=== PATIENT | male | born 1960 | race Caucasian/White ===

== ENCOUNTER 2022-02-25 09:55 | Emergency (ER) | payer OTHER, SELFPAY ==
[2022-02-25] VITALS (9 sets, daily range): BP systolic 122–154; BP diastolic 76–93; PULSE 69–94; RESP 18–21; TEMP 36.6; O2SAT 91–94; BMI 32.5
--- NOTE | 2022-02-25 10:28 | DI.RAD.S_ITS ---
PROCEDURE: XR CHEST 1V INDICATIONS: chest pain TECHNIQUE: One view of the chest was acquired. COMPARISON: None. FINDINGS: Surgical changes and devices: None. Lungs and pleura: Lungs are clear. No pleural effusions or pneumothorax. Mediastinum: Mediastinal contours appear normal. Heart size is normal. Bones and chest wall: No suspicious bony lesions. Overlying soft tissues appear unremarkable. IMPRESSION: No acute cardiopulmonary disease process. Dictated by: Nancy De Los Santos MD, PhD on 02/25/2022 at 10:54 Approved by: Nancy De Los Santos MD, PhD on 02/25/2022 at 10:54
[2022-02-25 10:43] LABS: Add Manual Diff / Slide Review NO; Basophils Absolute Auto 100 /uL (0-100); Basophils Percent Auto 0.7 % (0-2); Eosinophils Absolute Auto 100 /uL (0-450); Eosinophils Percent Auto 1.1 % (2-4); Hematocrit 45.6 % (41-53); Hemoglobin 15.7 g/dL (13.5-17.5); Lymphocytes Absolute Auto 1100 /uL (1100-4500); Lymphocytes Percent Auto 11.3 % (25-40); Mean Corpuscular HGB Conc 34.5 % (30-36); Mean Corpuscular Volume 89.9 fL (80-100); Monocytes Absolute Auto 1000 /uL (0-900); Monocytes Percent Auto 10.4 % (3-14); Neutrophils Absolute Auto 7600 /uL (1500-7000); Neutrophils Percent Auto 76.5 % (50-75); Platelet Count 311 X10^3/uL (150-400); Red Blood Cell Count 5.07 X10^6/uL (4.5-5.9); Red Cell Distribution Width 13.7 % (11.6-14.8)
[2022-02-25 10:52] LABS: Alanine Aminotransferase 24 IU/L (<50); Albumin 4.9 g/dL (3.5-5.0); Albumin Globulin Ratio 1.4 (1.0-2.8); Alkaline Phosphatase 92 U/L (38-126); Aspartate Aminotransferase 26 IU/L (17-59); BUN Creatinine Ratio 13.9 (6-22); Bilirubin Total 0.9 mg/dL (0.2-1.3); Blood Urea Nitrogen 10 mg/dL (9-20); Calcium 9.1 mg/dL (8.4-10.2); Carbon Dioxide 24 mmol/L (22-32); Chloride 104 mmol/L (98-107); Creatine Kinase 119 U/L (55-170); Estimated Glomerular Filt Rate > 60 mL/min (>60); Globulin 3.6 g/dL (1.7-4.1); Glucose 123 mg/dL (80-110); HEMOLYSIS < 15 (0-50); Lipase 81 U/L (23-300); Magnesium 1.9 mg/dL (1.6-2.3); Potassium 4.3 mmol/L (3.4-5.1); Sodium 137 mmol/L (137-145); Total Protein 8.5 g/dL (6.3-8.2)
[2022-02-25 10:56] LABS: D Dimer < 200 ng/mL (<230)
[2022-02-25 11:02] LABS: Troponin I < 0.012 ng/mL (0.01-0.034)
[2022-02-25 11:08] LABS: CKMB % Relative Index 0.2 % (1.5-5.0); Creatine Kinase MB 0.28 ng/mL (<2.37)
[2022-02-25 11:25] LABS: COVID19 -Nasal RAPID POSITIVE (Negative)
--- NOTE | 2022-02-25 11:56 | ED.URI ---
HPI - URI/Sore Throat General Chief Complaint: Upper Respiratory Symptoms Stated Complaint: COVID+ Chest discomfort Time Seen by Provider: 02/25/22 11:27 Source: patient Mode of arrival: Ambulatory History of Present Illness HPI Narrative: Patient is a 61-year-old male with history of hypertension, HARMONY presenting today with known COVID infections sore throat. States started having symptoms 4 days ago initial COVID test was negative however 3 days ago had a positive COVID test. Today she just feeling worse. Throat seems to really be hurting. He is coughing up some white phlegm. No real shortness of breath. He took both Tylenol and ibuprofen when he woke up around 7:00 p.m.. He denies any chest pain. No nausea or vomiting. No abdominal pain. Related Data Previous Rx's Medication Instructions Recorded nirmatrelvir 300 mg (150 mg x 2 tab PO QAM AND QPM 5 days #20 02/25/22 2)-ritonavir 100 mg tablet (EUA) tabs (Paxlovid 300 mg () Allergies Allergy/AdvReac Type Severity Reaction Status Date / Time No Known Drug Allergies Allergy Verified 02/25/22 10:08 Review of Systems Review of Systems Narrative: GENERAL: Denies chills, fatigue, malaise, fever, sweats, travel HEENT: See HPI RESPIRATORY: See HPI CARDIOVASCULAR: Denies chest pain, palpitations, orthopnea, edema GASTROINTESTINAL: Denies nausea, vomiting, abdominal pain, diarrhea, constipation, melena. : Denies dysuria, frequency, incontinence, hematuria, urinary retention, flank pain. MUSCULOSKELETAL: Denies weakness, joint pain, or bony pain SKIN: No rash, no erythema, no pruritus NEUROLOGIC: Denies weakness, dizziness, headache, numbness, change in speech, confusion PSYCHIATRIC: No concerning psychosocial issues. 12 point review of systems is negative except for those stated above and HPI Patient History Social History Smoking Status: Never smoker Smoking Status: Never smoker alcohol intake frequency: holidays/special occasions only Substance Use Type: does not use Exam Initial Vital Signs Initial Vital Signs: Vital Signs Temperature 97.8 F 02/25/22 10:08 Pulse Rate 94 H 02/25/22 10:08 Respiratory Rate 20 02/25/22 10:08 Blood Pressure 154/93 H 02/25/22 10:08 Pulse Oximetry 94 02/25/22 10:08 Oxygen Delivery Method 02/25/22 10:08 GENERAL: Alert 61-year-old male appears to not feel well but no acute distress HEENT: Head atraumatic,EOMI, pupils reactive, face symmetric, [moist] mucous membranes CARDIOVASCULAR: Regular rate and rhythm without murmurs, rubs or gallops. RESPIRATORY: Breath sounds equal bilaterally, no wheezes rales or rhonchi. ABDOMEN: Soft, nontender. Normoactive bowel sounds all 4 quadrants. No guarding or rebound. EXTREMITIES: Normal range of motion, no clubbing or edema. Neurovascularly intact NEUROLOGICAL: Alert and oriented x4. SKIN: Warm, dry, no laceration, no petechiae, no rashes or lesions. Course Orders Ordered: ED Orders 02/25/22 10:28 XR chest 1V Stat EKG-12 Lead Stat Discontinued Medications Sodium Chloride (Normal Saline 0.9%) 1,000 mls @ 1,000 mls/hr IV BOLUS ONE Stop: 02/25/22 13:04 Last Infusion: 02/25/22 13:17 Dose: 0 mls/hr Documented By: REPLACED BY [facility] Admin: 02/25/22 12:19 Dose: 1,000 mls/hr Documented By: MINA Ketorolac Tromethamine (Ketorolac 30 Mg/Ml Vial) 15 mg IV NOW ONE Stop: 02/25/22 12:06 Last Admin: 02/25/22 12:19 Dose: 15 mg Documented By: MINA Vital Signs Vital signs: Vital Signs - 8 hr 02/25/22 11:30 02/25/22 11:30 02/25/22 12:00 Pulse Rate 81 Respiratory Rate Blood Pressure 131/85 131/87 Pulse Oximetry 91 Oxygen Delivery Method Room Air 02/25/22 12:00 02/25/22 12:30 02/25/22 12:30 Pulse Rate 77 70 Respiratory Rate 18 Blood Pressure 122/77 Pulse Oximetry 92 93 Oxygen Delivery Method 02/25/22 13:00 02/25/22 13:00 Pulse Rate 69 Respiratory Rate Blood Pressure 128/76 Pulse Oximetry 94 Oxygen Delivery Method MDM - URI/Sore Throat Lab Data Result diagrams: 02/25/22 10:25 06/27/22 10:25 Labs: Lab Results 02/25/22 02/25/22 02/25/22 Range/Units 10:25 10:25 10:25 WBC 10.0 (4.5-11.0) X10^3/uL RBC 5.07 (4.5-5.9) X10^6/uL Hgb 15.7 (13.5-17.5) g/dL Hct 45.6 (41-53) % MCV 89.9 (80-100) fL MCH 31.0 (26-34) PG MCHC 34.5 (30-36) % RDW 13.7 (11.6-14.8) % Plt Count 311 (150-400) X10^3/uL Neut % (Auto) 76.5 H (50-75) % Lymph % (Auto) 11.3 L (25-40) % [place] % (Auto) 10.4 (3-14) % Eos % (Auto) 1.1 L (2-4) % Baso % (Auto) 0.7 (0-2) % Neut # (Auto) 7600 H (5597-8099) /uL Lymph # (Auto) 1100 (4131-8720) /uL [place] # (Auto) 1000 H (0-900) /uL Eos # (Auto) 100 (0-450) /uL Baso # (Auto) 100 (0-100) /uL D-Dimer < 200 (<230) ng/mL Sodium 137 (137-145) mmol/L Potassium 4.3 (3.4-5.1) mmol/L Chloride 104 (98-107) mmol/L Carbon Dioxide 24 (22-32) mmol/L BUN 10 (9-20) mg/dL Creatinine 0.72 (0.66-1.25) mg/dL Estimated GFR > 60 (>60) mL/min BUN/Creatinine Ratio 13.9 (6-22) Glucose 123 H (80-110) mg/dL Calcium 9.1 (8.4-10.2) mg/dL Magnesium 1.9 (1.6-2.3) mg/dL Total Bilirubin 0.9 (0.2-1.3) mg/dL AST 26 (17-59) IU/L ALT 24 (<50) IU/L Alkaline Phosphatase 92 (38-126) U/L Total Creatine Kinase 119 (55-170) U/L CK-MB (CK-2) 0.28 (<2.37) ng/mL CK-MB (CK-2) Rel Index 0.2 L (1.5-5.0) % Troponin I < 0.012 (0.01-0.034) ng/mL Total Protein 8.5 H (6.3-8.2) g/dL Albumin 4.9 (3.5-5.0) g/dL Globulin 3.6 (1.7-4.1) g/dL Albumin/Globulin Ratio 1.4 (1.0-2.8) Lipase 81 (23-300) U/L SARS-CoV-2 (PCR) (Negative) 02/25/22 Range/Units 10:25 WBC (4.5-11.0) X10^3/uL RBC (4.5-5.9) X10^6/uL Hgb (13.5-17.5) g/dL Hct (41-53) % MCV (80-100) fL MCH (26-34) PG MCHC (30-36) % RDW (11.6-14.8) % Plt Count (150-400) X10^3/uL Neut % (Auto) (50-75) % Lymph % (Auto) (25-40) % [place] % (Auto) (3-14) % Eos % (Auto) (2-4) % Baso % (Auto) (0-2) % Neut # (Auto) (1558-4603) /uL Lymph # (Auto) (1980-8307) /uL [place] # (Auto) (0-900) /uL Eos # (Auto) (0-450) /uL Baso # (Auto) (0-100) /uL D-Dimer (<230) ng/mL Sodium (137-145) mmol/L Potassium (3.4-5.1) mmol/L Chloride (98-107) mmol/L Carbon Dioxide (22-32) mmol/L BUN (9-20) mg/dL Creatinine (0.66-1.25) mg/dL Estimated GFR (>60) mL/min BUN/Creatinine Ratio (6-22) Glucose (80-110) mg/dL Calcium (8.4-10.2) mg/dL Magnesium (1.6-2.3) mg/dL Total Bilirubin (0.2-1.3) mg/dL AST (17-59) IU/L ALT (<50) IU/L Alkaline Phosphatase (38-126) U/L Total Creatine Kinase (55-170) U/L CK-MB (CK-2) (<2.37) ng/mL CK-MB (CK-2) Rel Index (1.5-5.0) % Troponin I (0.01-0.034) ng/mL Total Protein (6.3-8.2) g/dL Albumin (3.5-5.0) g/dL Globulin (1.7-4.1) g/dL Albumin/Globulin Ratio (1.0-2.8) Lipase (23-300) U/L SARS-CoV-2 (PCR) Positive H (Negative) Imaging Data Chest x-ray: Radiologist's Impression: XRay Report Signed Patient: Willam Garcia MR#: [id number] : 1960 Acct:[id number] Age/Sex: 61 / M Date of Service: 02/25/22 Loc: ED Accession Number: [id number] ?? Procedure: XR chest 1V Ordering Provider: Imelda Crews D.O. PROCEDURE:? XR CHEST 1V ? INDICATIONS:? chest pain ? TECHNIQUE:? One view of the chest was acquired.? ? COMPARISON:? None. ? FINDINGS:? ? Surgical changes and devices:? None.? ? Lungs and pleura:? Lungs are clear.? No pleural effusions or pneumothorax.? ? Mediastinum:? Mediastinal contours appear normal.? Heart size is normal.? ? Bones and chest wall:? No suspicious bony lesions.? Overlying soft tissues appear unremarkable.? ? IMPRESSION:? No acute cardiopulmonary disease process. ? ? Dictated by: Nancy De Los Santos MD, PhD on 02/25/2022 at 10:54? MDM Narrative Medical decision making narrative: Patient oxygen does decrease into the high 80s when he falls asleep. Probably combination of HARMONY and COVID. Oxygen is borderline 90-92%. Does quickly come up when he starts talking in taking deep breaths. At this time I do recommend paxlovid he within the 5 day window. Recommend he continue to monitor his oxygen at home. Feeling better after IV fluids and Toradol. Discharge Plan Departure Patient Disposition: Home Clinical Impression: COVID-19 Instructions: DI for COVID-19 (Suspected or Confirmed ) Activity Restrictions/Additional Instructions: *You have been diagnosed with COVID-19 *What to do: At this time please increase fluid intake monitor oxygen levels 1 to 2 times a day. Be sure the oxygen is above 91% *Continue to take medications as directed Paxlovid nayana as directed (this is a emergency use authorization (recommend calling pharmacies to make sure they have it before feeling it, start as soon as possible) *Follow up with your primary care provider in 2-3 days or call [phone] *Return to ER if you should have oxygen less than 90%, inability to tolerate fluids worsening pain or any new, worsening or concerning symptoms Prescriptions: New Paxlovid (EUA) 150 mg x 2- 100 mg tablet 2 tab PO QAM AND QPM 5 Days Qty: 20 0RF Visit Report Forms: Patient Portal/API
[2022-02-25] MEDS: SODIUM CHLORIDE 0.9% 1,000 ML 1000 ML IV (12:19)
[2022-02-25] MEDS: KETOROLAC 30 MG/ML VIAL 15 MG IV (12:19)
== END 2022-02-25 13:37 | disposition home or self-care (01) ==
PROVIDERS: Emergency Provider Emergency Medicine
DX: U07.1 COVID-19 (principal); R07.9 Chest pain, unspecified
CPT/HCPCS: 36415; 71045; 80053; 82550; 82553; 83690; 83735; 84484; 85025; 85379; 87635; 93005; 96361; 96374; 99284; C9803; J1885

== ENCOUNTER → 2023-01-28 16:23 | Outpatient (CLI) | payer OTHER, SELFPAY ==
[2023-01-28 17:39] LABS: Add Manual Diff / Slide Review NO; Basophils Absolute Auto 100 /uL (0-100); Basophils Percent Auto 1.1 % (0-2); Eosinophils Absolute Auto 400 /uL (0-450); Eosinophils Percent Auto 5.3 % (2-4); Hematocrit 44.4 % (41-53); Hemoglobin 14.9 g/dL (13.5-17.5); Lymphocytes Absolute Auto 2000 /uL (1100-4500); Lymphocytes Percent Auto 25.1 % (25-40); Mean Corpuscular HGB Conc 33.6 % (30-36); Mean Corpuscular Hemoglobin 30.8 PG (26-34); Mean Corpuscular Volume 91.6 fL (80-100); Monocytes Absolute Auto 600 /uL (0-900); Monocytes Percent Auto 7.6 % (3-14); Neutrophils Absolute Auto 5000 /uL (1500-7000); Neutrophils Percent Auto 60.9 % (50-75); Platelet Count 349 X10^3/uL (150-400); Red Blood Cell Count 4.85 X10^6/uL (4.5-5.9); Red Cell Distribution Width 14.3 % (11.6-14.8); White Blood Cell Count 8.1 X10^3/uL (4.5-11.0)
[2023-01-28 18:06] LABS: Alanine Aminotransferase 51 IU/L (<50); Albumin 4.8 g/dL (3.5-5.0); Albumin Globulin Ratio 1.4 (1.0-2.8); Alkaline Phosphatase 78 U/L (38-126); Aspartate Aminotransferase 41 IU/L (17-59); BUN Creatinine Ratio 18.4 (6-22); Bilirubin Total 0.6 mg/dL (0.2-1.3); Blood Urea Nitrogen 16 mg/dL (9-20); Calcium 9.3 mg/dL (8.4-10.2); Carbon Dioxide 26 mmol/L (22-32); Chloride 104 mmol/L (98-107); Estimated Glomerular Filt Rate > 60 mL/min (>60); Globulin 3.5 g/dL (1.7-4.1); Glucose 120 mg/dL (80-110); Lipase 86 U/L (23-300); Sodium 141 mmol/L (137-145); Total Protein 8.3 g/dL (6.3-8.2)
[2023-01-28 18:07] LABS: HEMOLYSIS 16 (0-50); Potassium 4.2 mmol/L (3.4-5.1)
[2023-01-28 18:59] LABS: Appearance Urine UA CLEAR; Bilirubin Urine UA NEGATIVE (NEGATIVE); Color Urine UA YELLOW; Glucose Urine UA NEGATIVE (Negative); Ketones Urine UA NEGATIVE (NEGATIVE); Leukocyte Esterase Urine UA NEGATIVE (NEGATIVE); Nitrite Urine UA NEGATIVE (Negative); Occult Blood Urine UA NEGATIVE (Negative); Protein Urine UA NEGATIVE (Negative); Specific Gravity Urine UA >=1.030 (1.000-1.035); Urobilinogen Urine UA 0.2 E.U./dL (0.2)
[2023-01-28 19:09] LABS: Bacteria Urine None Seen; Culture Indicated Urine Cult Not Indicated; RBC Urine 0-1/HPF (0-5/HPF); WBC Urine 0-1/HPF (0-5/HPF)
== END ==
PROVIDERS: Referring Provider Family Medicine; Visit Provider Family Medicine
DX: R10.812 Left upper quadrant abdominal tenderness (principal)
CPT/HCPCS: 36415; 80053; 81001; 83690; 85025

== ENCOUNTER → 2023-03-18 08:11 | Outpatient (CLI) | payer OTHER, SELFPAY ==
--- NOTE | 2023-03-18 08:13 | DI.US.S_ITS ---
PROCEDURE: US ABDOMEN COMPLETE INDICATIONS: ABDOMINAL PAIN TECHNIQUE: Real-time scanning was performed of the abdominal and retroperitoneal organs, with image documentation. COMPARISON: [facility], CR, XR CHEST 1V, 02/25/2022, 10:38. FINDINGS: Limited examination due to bowel gas. Liver: Liver length of 21.9 cm. Liver is echogenic. Gallbladder: Not visualized. Biliary ducts: Extrahepatic duct not visualized due to bowel gas. No intrahepatic ductal dilation visualized. Pancreas: Not well visualized due to bowel gas. Spleen: Spleen is normal in size and homogeneous in echotexture. Kidneys: Kidneys are normal in size and echotexture. Right kidney measures 11.3 cm long; left kidney measures 11.7 cm long. No hydronephrosis or definite nephrolithiasis. 4 mm calcification at the left kidney appears cortically based, may be postinflammatory but is nonspecific. Aorta: Visualized aorta is normal in caliber at less than 3 cm. Iliacs: Proximal common iliac arteries are normal in caliber at less than 2.5 cm. IVC: Intrahepatic inferior vena cava is patent. Miscellaneous: No free abdominal fluid. IMPRESSION: 1. Limited examination due to bowel gas. 2. The liver is echogenic, a nonspecific finding commonly seen in the setting of steatosis. Liver length of 21.9 cm, could reflect hepatomegaly. 3. Gallbladder not visualized, could be related to prior cholecystectomy or obscured by bowel gas. Correlation for prior history of cholecystectomy may be helpful. Dictated by: Randall Lua M.D. on 03/18/2023 at 18:15 Approved by: Randall Lua M.D. on 03/18/2023 at 18:19
== END ==
PROVIDERS: Referring Provider Family Medicine; Visit Provider Family Medicine
DX: R10.9 Unspecified abdominal pain (principal)
CPT/HCPCS: 76700